=== PATIENT | female | born 1965 | race Caucasian/White ===

== ENCOUNTER 2016-11-01 15:31 | Emergency (ER) | payer OTHER ==
[~2016-11-01] VITALS: Ht 160 cm; Wt 66.7 kg
--- NOTE | 2016-11-01 16:06 | RAD ---
Right knee with patella, 4 views, 11/01/2016: History: Knee pain and swelling No fracture or dislocation is identified. There is mild arthritic change at the patellofemoral articulation. No large joint effusion is identified. IMPRESSION: 1. Mild patellofemoral degenerative change. 2. No acute bony abnormality is detected.
--- NOTE | 2016-11-01 16:49 | RAD ---
Right lower extremity venous ultrasound, 11/01/2016 : History: Leg pain and swelling, possible DVT Duplex evaluation including grayscale, color flow and spectral Doppler analysis was performed. The femoral and popliteal veins show no filling defects to suggest DVT. The visualized calf veins are unremarkable. An elongated fluid collection is present in the right popliteal fossa compatible with a Soto's cyst. It measures 4 x 1 cm. IMPRESSION: 1. There is no sonographic evidence of deep vein thrombosis in the right lower extremity. 2. Right popliteal cyst.
[2016-11-01 17:02] VITALS: BP 158/80
[2016-11-01] MEDS ORDERED: NAPR500T8 PO (17:09)
[2016-11-01] MEDS ORDERED: METH4TAB2 PO (17:09)
--- NOTE | 2016-11-01 17:10 | PHYS DOC ---
Adult General Chief Complaint Chief Complaint: LOWER EXTREMITY SWELLING HPI HPI Patient is a 50 year old female who presents with right knee pain and swelling that began days ago. Patient states a month ago she had an ablation of the right knee. She states she was following up with her own doctor who she cannot remember the name right now. Patient states she called the doctor's office and they requested her to come to the ED to be evaluated for DVT. Patient denies being on any medications right now part from Adderall. Patient denies any trauma. She states she is a smoker. Denies any chest pain or shortness of breath. Review of Systems Review of Systems Constitutional: Denies fever or chills [] Eyes: Denies change in visual acuity, redness, or eye pain [] HENT: Denies nasal congestion or sore throat [] Respiratory: Denies cough or shortness of breath [] Cardiovascular: No additional information not addressed in HPI [] GI: Denies abdominal pain, nausea, vomiting, bloody stools or diarrhea [] : Denies dysuria or hematuria [] Musculoskeletal: Right knee pain and swelling. Integument: Denies rash or skin lesions [] Neurologic: Denies headache, focal weakness or sensory changes [] Endocrine: Denies polyuria or polydipsia [] Physical Exam Physical Exam Constitutional: Well developed, well nourished, no acute distress, non-toxic appearance. [] HENT: Normocephalic, atraumatic, bilateral external ears normal, oropharynx moist, no oral exudates, nose normal. [] Eyes: PERRLA, EOMI, conjunctiva normal, no discharge. [] Neck: Normal range of motion, no tenderness, supple, no stridor. [] Cardiovascular:Heart rate regular rhythm, no murmur [] Lungs & Thorax: Bilateral breath sounds clear to auscultation [] Abdomen: Bowel sounds normal, soft, no tenderness, no masses, no pulsatile masses. [] Skin: Warm, dry, no erythema, no rash. [] Back: No tenderness, no CVA tenderness. [] Extremities: Right knee with no obvious deformity. Palpable masses felt on the right popliteal region. No tenderness on pushing on the mass. Negative Homans sign to the right lower extremity. Full range of motion to the right knee. Negative Erick sign and negative Kael's sign negative anterior-posterior drawer sign to the right knee. +2 right pedal pulse. Cap refill less than 2 seconds the right lower extremity. Neurologic: Alert and oriented X 3, normal motor function, normal sensory function, no focal deficits noted. [] Psychologic: Affect normal, judgement normal, mood normal. [] EKG EKG [] Radiology/Procedures Radiology/Procedures [] Course & Med Decision Making Course & Med Decision Making Pertinent Labs and Imaging studies reviewed. (See chart for details) Patient is in the ED right knee pain and swelling, she was sent to the ED to rule out DVT. Right knee x-rays interpreted by radiologist are negative for any acute findings but noted for DJD of the knee, Doppler of the right lower extremity to was negative for DVT but noted for popliteal cyst. Patient will follow up with her own orthopedic doctor. She states she is from [place]. She was encouraged to consider smoking cessation. Dragon Disclaimer Dragon Disclaimer This electronic medical record was generated, in whole or in part, using a voice recognition dictation system. Departure Departure Impression: Primary Impression: Right knee DJD Additional Impressions: Synovial cyst of popliteal space [Soto], right knee Smoking addiction Disposition: HOME, SELF-CARE Condition: STABLE Referrals: UNKNOWN PCP NAME (PCP) follow up with your own orthopedic doctor as needed for pain Patient Instructions: Arthritis, Nonspecific, Knee Pain, [id number] Additional Instructions: You were seen for right knee pain and swelling. Your right knee x-ray is negative for any acute findings, but noted for arthritis of the knee. Your venous Doppler of the right lower extremity was negative for DVT, it was noted for popliteal cyst. Follow-up with your orthopedic doctor as soon as you can. Come back to the ED at any point symptoms worsen. Consider smoking cessation. Scripts Naproxen 500 Mg Tablet.dr1 Tab PO BID #60 TAB Ref 2 Prov:SHIRINSAGAR BRIDGE [employer]LL COLLECTOR 11/01/16 Methylprednisolone (Medrol)4 Mg Tab.ds.pk1 Pkg PO UD #1 PKG Prov:SAGAR CARPIO [employer] COL[employer]OR 11/01/16 Problem Qualifiers Primary Impression: Right knee DJD Osteoarthritis type: unspecified Qualified Code: M17.11 - Unilateral primary osteoarthritis, right knee SAGAR CARPIO [employer] Nov 01, 2016 17:10
== END 2016-11-01 17:18 | disposition home or self-care (01) ==
LOC: ER 15:31
DX: M17.11 Unilateral primary osteoarthritis, right knee (principal); M71.21 Synovial cyst of popliteal space [Baker], right knee; F17.200 Nicotine dependence, unspecified, uncomplicated
CPT/HCPCS: 73564; 93971; 99284-25